=== PATIENT | female | born 1940 | race Caucasian/White ===

== ENCOUNTER → 2018-01-12 12:48 | Outpatient (CLI) | payer MEDICARE, OTHER, SELFPAY ==
--- NOTE | 2018-01-12 | DI.MG.S_ITS ---
BILATERAL DIGITAL DIAGNOSTIC MAMMOGRAM 3D/2D: 01/12/2018 CLINICAL: Breast mass. Comparison is made to exams dated: 12/22/2015 mammogram - [facility], 04/20/2012 mammogram, and 04/05/2011 mammogram - [facility]. The tissue of both breasts is heterogeneously dense. This may lower the sensitivity of mammography. No significant masses, calcifications, or other findings are seen in either breast. Please note, the patient could not recall the location of the previously palpable mass. IMPRESSION: NEGATIVE There is no mammographic evidence of malignancy. A 1 year screening mammogram is recommended. This exam was interpreted at Station ID: [id number]. NOTE: For mammograms, a report in lay terms will be sent to the patient. Approximately 15% of breast malignancies will not be visualized mammographically. In the management of a palpable breast mass, a negative mammogram must not discourage biopsy of a clinically suspicious lesion. Electronically Signed By: Cristiane Mejia M.D. lk/:01/12/2018 13:26:47 letter sent: Clinical Evaluation ACR BI-RADS Category 1: Negative [id number]
== END ==
PROVIDERS: Family Provider Family Medicine; PCP Family Medicine; Visit Provider Family Medicine
DX: R92.8 Other abnormal and inconclusive findings on diagnostic imaging of breast (principal)
CPT/HCPCS: 77066; G0279

== ENCOUNTER → 2019-08-30 11:55 | Outpatient (CLI) | payer MEDICARE, OTHER, SELFPAY ==
--- NOTE | 2019-08-30 | DI.CT.S_ITS ---
PROCEDURE: CT ABDOMEN PELVIS W CON INDICATIONS: Lower abd pain TECHNIQUE: After the administration of oral and intravenous contrast, 5 mm thick sections acquired from the diaphragms to the symphysis. 5 mm thick coronal and sagittal reformats were performed. For radiation dose reduction, the following was used: automated exposure control, adjustment of mA and/or kV according to patient size. COMPARISON: [facility], , CT ABDOMEN/PELVIS WITH CONTRAST, 01/15/2004, 10:23. FINDINGS: Image quality: Excellent. ABDOMEN: Lung bases: Lung bases are clear. Heart size is normal. Solid organs: Hepatic steatosis. Gallbladder negative. Biliary system is non-dilated. Pancreas enhances normally. Spleen is normal in size and enhancement. 1 cm left adrenal nodule, which is not seen on prior study from although no more recent comparison studies available Kidneys are normal in size and enhancement, without hydronephrosis. Peritoneum and bowel: Large amount of stool is present diffusely throughout the colon. No definite transition point to suggest bowel obstruction is identified. No free fluid or air. Normal appendix. Nodes and vessels: No retroperitoneal or mesenteric adenopathy. Aorta and inferior vena cava are normal in caliber. Miscellaneous: No ventral hernias. PELVIS: Genitourinary: Bladder is distended. Incidentally noted pessary Miscellaneous: No inguinal hernias or adenopathy. Bones: No suspicious bony lesions. Diffuse spondylosis and facet arthropathy. Posterior spinal fixation hardware from L3 to-L4. No vertebral body compression fractures. IMPRESSION: Large amount of stool seen throughout the colon, in particular the rectal vault and right colon suggestive of fecal retention/constipation. Nonspecific 1 cm left adrenal nodule which is technically indeterminate. Metastatic or malignant possibilities cannot be excluded. Recommend continued surveillance with CT to document long-term stability or a clinical discretion, adrenal protocol MRI could be performed. Hepatic steatosis Elsewhere, no acute abnormality identified. Dictated by: Javier Rutherford M.D. on 08/30/2019 at 16:28 Approved by: Javier Rutherford M.D. on 08/30/2019 at 16:38
[2019-08-30 13:05] LABS: Alanine Aminotransferase 46 IU/L (<35); Albumin 4.2 g/dL (3.5-5.0); Albumin Globulin Ratio 1.8 (1.0-2.8); Alkaline Phosphatase 98 U/L (38-126); Aspartate Aminotransferase 39 IU/L (14-36); Bilirubin Total 0.6 mg/dL (0.2-1.3); Bilirubin Unconjugated 0.6 mg/dL (0.0-1.1); Globulin 2.4 g/dL (1.7-4.1); HEMOLYSIS < 15 (0-50); Total Protein 6.6 g/dL (6.3-8.2)
== END ==
PROVIDERS: Family Provider Family Medicine; PCP Family Medicine; Referring Provider Family Medicine; Visit Provider Family Medicine
DX: R10.30 Lower abdominal pain, unspecified (principal); E27.9 Disorder of adrenal gland, unspecified; K76.0 Fatty (change of) liver, not elsewhere classified; R58 Hemorrhage, not elsewhere classified; R79.89 Other specified abnormal findings of blood chemistry
CPT/HCPCS: 36415; 74177; 80076

== ENCOUNTER → 2020-03-28 12:01 | Outpatient (CLI) | payer MEDICARE, OTHER, SELFPAY ==
[2020-03-28] MEDS: COVID-19 VACC #1, MRNA(MOD) 100 MCG/0.5 ML VIAL IM (12:11)
== END ==
PROVIDERS: Family Provider Family Medicine; PCP Family Medicine; Visit Provider Internal Medicine
DX: Z23 Encounter for immunization (principal)
CPT/HCPCS: 0011A; 91301

== ENCOUNTER → 2020-04-25 12:26 | Outpatient (CLI) | payer MEDICARE, OTHER, SELFPAY ==
[2020-04-25] MEDS: COVID-19 VACC #2, MRNA(MOD) 100 MCG/0.5 ML VIAL IM (12:34)
== END ==
PROVIDERS: Family Provider Family Medicine; PCP Family Medicine; Visit Provider Internal Medicine
DX: Z23 Encounter for immunization (principal)
CPT/HCPCS: 0012A; 91301

== ENCOUNTER → 2020-07-22 17:34 | Outpatient (CLI) | payer MEDICARE, OTHER, SELFPAY ==
--- NOTE | 2020-07-22 | DI.MRI.S_ITS ---
PROCEDURE: MR SHOULDER LT WO CON INDICATIONS: pain in left shoulder TECHNIQUE: Noncontrast oblique coronal T2 fast spin echo with fat saturation, oblique sagittal T1 spin echo and T2 fast spin echo with fat saturation, axial T1 spin echo and T2 fast spin echo with fat saturation through the shoulder. COMPARISON: [facility], CR, XR SHOULDER 2+ VIEWS LEFT, 05/28/2020, 15:51. FINDINGS: Image quality: Excellent. Rotator cuff: There is moderate diffuse T2 signal elevation throughout the subscapularis, supraspinatus, and infraspinatus tendons at the humeral insertion sites extending to the musculotendinous junction, indicating tendinopathy. Superimposed low-grade partial-thickness articular surface tearing of the lower subscapularis tendon at the humeral insertion site. Superimposed low-grade partial-thickness articular surface and intrasubstance tearing of the upper subscapularis tendon at the humeral insertion site extending to the musculotendinous junction. Superimposed low-grade partial-thickness intrasubstance tearing of the anterior, mid, and posterior supraspinatus, as well as the anterior and mid infraspinatus tendon at the humeral insertion site, with musculotendinous junction extension. Teres minor is intact. No rotator cuff atrophy is present. Bones and bursae: No bone marrow contusions or fractures. Moderate periarticular osteophyte formation at the glenohumeral joint. Moderate subchondral degenerative marrow edema within the glenoid and humeral head. Multiple subchondral cysts within the humeral head, consistent with degenerative sequelae. Moderate acromioclavicular joint degeneration. The acromion demonstrates conventional anatomy, without an os acromiale. No pathologic subacromial-subdeltoid or subcoracoid bursal fluid is present. Capsule and soft tissues: Diffuse degenerative glenoid labral tearing. Moderate glenohumeral joint effusion with multiple intra-articular loose bodies, largest of which is in the subcoracoid recess measuring roughly 14 mm diameter. The long head of the biceps tendon demonstrates normal location with moderate internal T2 signal elevation in enlargement, indicating tendinopathy. The rotator interval appears normal, without fibrosis. The coracohumeral ligament is normal in thickness. IMPRESSION: 1. Acromioclavicular and glenohumeral joint osteoarthritis. 2. Tendinopathy of the subscapularis, supraspinatus, and infraspinatus tendons, with superimposed partial thickness tears as described above. No full-thickness rotator cuff tear. 3. Diffuse degenerative glenoid labral tearing. 4. Acromioclavicular joint osteoarthritis. 5. Biceps tendinopathy. Dictated by: Nile Beltran M.D. on 07/23/2020 at 8:43 Approved by: Nile Beltran M.D. on 07/23/2020 at 8:50
== END ==
PROVIDERS: Family Provider Family Medicine; PCP Family Medicine; Referring Provider Family Medicine; Visit Provider Family Medicine
DX: M25.512 Pain in left shoulder (principal); M75.112 Incomplete rotator cuff tear or rupture of left shoulder, not specified as traumatic; M19.012 Primary osteoarthritis, left shoulder; S43.492A Other sprain of left shoulder joint, initial encounter; G89.29 Other chronic pain
CPT/HCPCS: 73221

== ENCOUNTER 2023-07-13 02:12 | Emergency (ER) | payer MEDICARE, OTHER, SELFPAY ==
--- NOTE | 2023-07-13 02:08 | ED.GENADULT ---
HPI - General Adult General Chief complaint: Fall Stated complaint: GLF Time Seen by Provider: 07/13/23 02:20 History of Present Illness HPI narrative: 83-year-old woman, currently living at [facility] reportedly had a witnessed fall with no obvious injuries. She has not on blood thinners. Family had expressed the wish that she be further evaluated with any events happening during her stay so she is brought in by medics for further evaluation. Per medics, the fall was witnessed on video. She ran into the wall and then slid down. She did not hit her head staff report that she is at her baseline. Patient has no complaints and does not remember the fall. Related Data Home Medications Medication Instructions Recorded Confirmed magnesium oxide 400 mg (241.3 mg 400 mg PO QDAY ##0 04/02/16 magnesium) tablet atorvastatin 40 mg tablet (Lipitor) 40 mg PO HS ##0 12/07/16 Previous Rx's Medication Instructions Recorded aspirin 325 mg tablet,delayed 325 mg PO QDAY #30 tabs 10/17/15 release hydroxyzine HCl 25 mg tablet 0 mg (0 x 25 mg) PO SEE 04/02/16 INSTRUCTIONS PRN #20 tabs alendronate 70 mg tablet (Fosamax) 70 mg PO QWEEK #12 tabs 04/06/16 liothyronine 5 mcg tablet (Cytomel) 5 mcg PO Q DAY ##90 06/18/16 duloxetine 60 mg capsule,delayed 60 mg PO QDAY #90 caps 07/20/16 release (Cymbalta) acyclovir 400 mg tablet 400 mg PO BID #60 tabs 07/23/16 buspirone 10 mg tablet 10 mg PO HS #90 tabs 09/08/16 levothyroxine 75 mcg tablet 0.075 mg PO QAM #90 tabs 09/08/16 (Synthroid) celecoxib 200 mg capsule (Celebrex) 200 cap PO BID #90 caps 09/15/16 buspirone 15 mg tablet 15 mg PO QDAY #90 tabs 10/19/16 acetaminophen 325 mg tablet 0 mg (0 x 325 mg) PO Q4HP PRN ##30 12/29/16 aspirin 81 mg tablet,delayed 81 mg PO BID ##60 12/29/16 release Allergies Allergy/AdvReac Type Severity Reaction Status Date / Time lactose AdvReac Mild FLATULENCE Unverified 06/08/17 13:07 meloxicam AdvReac Mild GASTRITIS Unverified 06/08/17 13:07 Sulfa (Sulfonamide AdvReac Mild HIGH FEVER Unverified 06/08/17 13:07 Antibiotics) Review of Systems Review of Systems ROS Unobtainable: Unobtainable due to mental status/LOC Patient History Medical History (Updated 07/13/23 @ 02:38 by Cher Grimes MD) Dementia Surgical History (Updated 06/28/17 @ 06:31 by Conversion Provider) History of knee replacement History of spinal fusion Status post laminectomy Status post knee surgery History of knee replacement Status post laminectomy Status post appendectomy Family History (Updated 08/20/15 @ 00:00 by Conversion Provider) Father Heart disease Grandmother Heart disease Hypertension Mother Mental health problem Grandfather Heart disease Hypertension High cholesterol Exam Initial Vital Signs Initial Vital Signs: Vital Signs Temperature 97.8 F 07/13/23 02:19 Pulse Rate 71 07/13/23 02:19 Respiratory Rate 18 07/13/23 02:19 Blood Pressure 154/73 H 07/13/23 02:19 Pulse Oximetry 96 07/13/23 02:19 Oxygen Delivery Method Room Air 07/13/23 02:19 General: Frail but healthy-appearing woman. No abrasions or contusions. She has not oriented to person, time, place, events HEENT: Moist mucous membranes, normal sclera with reactive pupils, no tenderness with manipulation of the skull Neck: No tenderness with palpation Respiratory: Lungs are clear to auscultation, no wheezing no rales no rhonchi. Full and symmetrical air movement. No chest tenderness with compression Cardiac: Regular rate and rhythm no murmurs no bruits Abdomen: Soft, nontender, no flank pain. No tenderness with pelvic ring manipulation Skin: Warm and dry, no rashes Neurologic: Grossly neurologically intact with no obvious asymmetries or abnormalities Extremities: No trauma, well perfused, no tenderness with range of motion at the shoulders, elbows, wrists, hips or knees. Psych: Patient is not oriented to person time and place, vacillates between pleasantly demented too aggressive and yelling. Course Vital Signs Vital signs: Vital Signs - 8 hr 07/13/23 02:19 Temperature 97.8 F Pulse Rate 71 Respiratory Rate 18 Blood Pressure 154/73 H Pulse Oximetry 96 Oxygen Delivery Method Room Air Medical Decision Making MDM Narrative Medical decision making narrative: 83-year-old woman with significant dementia [facility]. She had a fall that was witnessed via video today that consisted of running into the wall slumping down no significant injury. Based on standing request reportedly from the that every event that occurs be ?checked out? medics were called and she was transported to the emergency department. There was no obvious injury, abrasions, contusions no indication for additional imaging or blood work. Reassurance is given and patient is helped back to [facility] Discharge Plan Departure Patient Disposition: Home Clinical Impression: Fall Qualifiers: Encounter type: initial encounter Qualified Code(s): W19.XXXA - Unspecified fall, initial encounter Activity Restrictions/Additional Instructions: Kadie was seen and evaluated in the emergency department She seems that she is at her baseline level of cognitive impairment There are no keep pain complaints or evidence of injury with examination of her head, neck, thorax, abdomen, pelvis or extremities There was no indication for additional blood work or imaging today If you have additional concerns please feel free to have Kadie return for further evaluation Prescriptions: No Action aspirin 325 MG tablet,delayed release (DR/EC) 325 mg PO QDAY Qty: 30 1RF magnesium oxide 400 MG tablet 400 mg PO QDAY Qty: 0 hydroxyzine HCl 25 MG tablet 0 mg PO SEE INSTRUCTIONS PRNQty: 20 0RF alendronate [Fosamax] 70 MG tablet 70 mg PO QWEEK Qty: 12 3RF liothyronine [Cytomel] 5 MCG tablet 5 mcg PO Q DAY Qty: 90 1RF duloxetine [Cymbalta] 60 MG capsule,delayed release(DR/EC) 60 mg PO QDAY Qty: 90 1RF acyclovir 400 MG tablet 400 mg PO BID Qty: 60 3RF levothyroxine [Synthroid] 75 MCG tablet 0.075 mg PO QAM Qty: 90 0RF buspirone 10 MG tablet 10 mg PO HS Qty: 90 1RF celecoxib [Celebrex] 200 MG capsule 200 cap PO BID Qty: 90 1RF buspirone 15 MG tablet 15 mg PO QDAY Qty: 90 1RF atorvastatin [Lipitor] 40 MG tablet 40 mg PO HS Qty: 0 acetaminophen 325 MG tablet 0 mg PO Q4HP PRNQty: 30 0RF aspirin 81 MG tablet,delayed release (DR/EC) 81 mg PO BID Qty: 60 0RF Referrals: Gerardo Dyer MD [Primary Care Provider] - Stand Alone Forms: Patient Portal/API
[2023-07-13 02:15] VITALS: BP 154/73; PULSE 77; O2SAT 97
[2023-07-13 02:19] VITALS: BP 154/73; PULSE 71; RESP 18; TEMP 36.6; O2SAT 96
[2023-07-13 02:30] VITALS: BP 150/75; PULSE 70; RESP 18; O2SAT 100
--- NOTE | 2023-07-13 03:30 | PC.NURSE ---
pt continues to get off of stretcher, ambulated pt around the nurses' station and placed pt in a wc to sit at the nurses station, pt given some jello
--- NOTE | 2023-07-13 04:08 | PC.NURSE ---
repeat vs refused per pt
== END 2023-07-13 04:08 | disposition home or self-care (01) ==
PROVIDERS: Emergency Provider Emergency Medicine; Family Provider Family Medicine; PCP Family Medicine
DX: Z71.1 Person with feared health complaint in whom no diagnosis is made (principal); W18.30XA Fall on same level, unspecified, initial encounter

== ENCOUNTER 2023-07-13 16:54 | Emergency (ER) | payer MEDICARE, OTHER, SELFPAY ==
[2023-07-13] VITALS (12 sets, daily range): BP systolic 136–165; BP diastolic 57–77; PULSE 57–67; RESP 12–18; TEMP 36.7; O2SAT 97–100; BMI 21.5
--- NOTE | 2023-07-13 17:28 | DI.CT.S_ITS ---
PROCEDURE: CT HEAD/BRAIN WO CON INDICATIONS: Altered mental status after fall TECHNIQUE: Noncontrast 4.5 mm thick angled axial sections acquired from the foramen magnum to the vertex, with coronal and sagittal reformats. For radiation dose reduction, the following was used: automated exposure control, adjustment of mA and/or kV according to patient size. COMPARISON: [facility], CT, HEAD WITHOUT CONTRAST, 10/01/2015, 16:30. FINDINGS: Image quality: Diagnostic CSF spaces: Basal cisterns are patent. Lateral ventricles are symmetric. Volume: Vascular calcifications. 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 Volume loss is present. These findings are moderate to severe Brain: No acute hemorrhage. No gross loss of lockwood-white differentiation. Ventriculomegaly, out of proportion to the degree of volume loss. Craniofacial structures: No displaced fracture. Sinuses are clear. Orbits are intact. IMPRESSION: No acute intracranial pathology. Moderate to severe senescent changes and volume loss. Ventriculomegaly is increased, out of proportion to the degree of volume loss Dictated by: Michele Petit M.D. on 07/13/2023 at 18:12 Approved by: Michele Petit M.D. on 07/13/2023 at 18:14
[2023-07-13 17:39] LABS: Add Manual Diff / Slide Review NO; Basophils Absolute Auto 100 /uL (0-100); Basophils Percent Auto 0.8 % (0-2); Eosinophils Absolute Auto 200 /uL (0-450); Eosinophils Percent Auto 2.1 % (2-4); Hematocrit 41.4 % (36-46); Hemoglobin 13.7 g/dL (12.0-16.0); Lymphocytes Absolute Auto 2400 /uL (1100-4500); Lymphocytes Percent Auto 27.4 % (25-40); Mean Corpuscular HGB Conc 33.1 % (30-36); Mean Corpuscular Hemoglobin 32.1 PG (26-34); Monocytes Absolute Auto 700 /uL (0-900); Monocytes Percent Auto 8.1 % (3-14); Neutrophils Absolute Auto 5500 /uL (1500-7000); Neutrophils Percent Auto 61.6 % (50-75); Platelet Count 276 X10^3/uL (150-400); Red Blood Cell Count 4.27 X10^6/uL (4.0-5.2); Red Cell Distribution Width 13.4 % (11.6-14.8); White Blood Cell Count 8.9 X10^3/uL (4.5-11.0)
[2023-07-13 17:39] LABS: Appearance Urine UA CLEAR; Bilirubin Urine UA NEGATIVE (NEGATIVE); Color Urine UA YELLOW; Glucose Urine UA NEGATIVE (Negative); Ketones Urine UA NEGATIVE (NEGATIVE); Leukocyte Esterase Urine UA NEGATIVE (NEGATIVE); Nitrite Urine UA NEGATIVE (Negative); Occult Blood Urine UA NEGATIVE (Negative); Protein Urine UA NEGATIVE (Negative); Urobilinogen Urine UA 0.2 E.U./dL (0.2)
[2023-07-13 17:42] LABS: BUN Creatinine Ratio 25.9 (6-22); Blood Urea Nitrogen 22 mg/dL (7-17); Calcium 9.4 mg/dL (8.4-10.2); Carbon Dioxide 23 mmol/L (22-32); Chloride 113 mmol/L (98-107); Estimated Glomerular Filt Rate > 60 mL/min (>60); Glucose 87 mg/dL (80-110); HEMOLYSIS 21 (0-50); Potassium 4.5 mmol/L (3.4-5.1); Sodium 141 mmol/L (137-145)
[2023-07-13 17:55] LABS: Bacteria Urine None Seen; Culture Indicated Urine Cult Not Indicated; RBC Urine None Seen (0-5/HPF); Squamous Epithelial Cell Urine None Seen (0-5/HPF); Urine Volume 10mL (spun); WBC Urine None Seen (0-5/HPF)
--- NOTE | 2023-07-13 18:20 | ED.GENADULT ---
HPI - General Adult General Chief complaint: Altered Mental Status Stated complaint: decreased LOC,here last night. Time Seen by Provider: 07/13/23 17:08 Source: EMS Mode of arrival: EMS History of Present Illness HPI narrative: 83-year-old woman with dementia, currently at [facility] had a witnessed fall with no injury last night was sent to the emergency department and was evaluated. She was not complaining of any pain, vital signs were stable. There was no indication for additional workup at that time. She was here for the majority of the night and was wide awake and quite literally, walking circles through the emergency department for much of the evening. She went back to [facility] and returns this morning with staff reporting decreased level of consciousness, responding to voice. Patient is sleeping soundly at this time. Related Data Home Medications Medication Instructions Recorded Confirmed magnesium oxide 400 mg (241.3 mg 400 mg PO QDAY ##0 04/02/16 magnesium) tablet atorvastatin 40 mg tablet (Lipitor) 40 mg PO HS ##0 12/07/16 Previous Rx's Medication Instructions Recorded aspirin 325 mg tablet,delayed 325 mg PO QDAY #30 tabs 10/17/15 release hydroxyzine HCl 25 mg tablet 0 mg (0 x 25 mg) PO SEE 04/02/16 INSTRUCTIONS PRN #20 tabs alendronate 70 mg tablet (Fosamax) 70 mg PO QWEEK #12 tabs 04/06/16 liothyronine 5 mcg tablet (Cytomel) 5 mcg PO Q DAY ##90 06/18/16 duloxetine 60 mg capsule,delayed 60 mg PO QDAY #90 caps 07/20/16 release (Cymbalta) acyclovir 400 mg tablet 400 mg PO BID #60 tabs 07/23/16 buspirone 10 mg tablet 10 mg PO HS #90 tabs 09/08/16 levothyroxine 75 mcg tablet 0.075 mg PO QAM #90 tabs 09/08/16 (Synthroid) celecoxib 200 mg capsule (Celebrex) 200 cap PO BID #90 caps 09/15/16 buspirone 15 mg tablet 15 mg PO QDAY #90 tabs 10/19/16 acetaminophen 325 mg tablet 0 mg (0 x 325 mg) PO Q4HP PRN ##30 12/29/16 aspirin 81 mg tablet,delayed 81 mg PO BID ##60 12/29/16 release Allergies Allergy/AdvReac Type Severity Reaction Status Date / Time lactose AdvReac Mild FLATULENCE Unverified 06/08/17 13:07 meloxicam AdvReac Mild GASTRITIS Unverified 06/08/17 13:07 Sulfa (Sulfonamide AdvReac Mild HIGH FEVER Unverified 06/08/17 13:07 Antibiotics) Review of Systems Review of Systems ROS Unobtainable: Unobtainable due to mental status/LOC Patient History Medical History Dementia Surgical History History of knee replacement History of spinal fusion Status post laminectomy Status post knee surgery History of knee replacement Status post laminectomy Status post appendectomy Family History Father Heart disease Grandmother Heart disease Hypertension Mother Mental health problem Grandfather Heart disease Hypertension High cholesterol Exam Initial Vital Signs Initial Vital Signs: Vital Signs Pulse Rate 63 07/13/23 17:11 Respiratory Rate 12 07/13/23 17:11 Blood Pressure 164/77 H 07/13/23 17:11 Pulse Oximetry 97 07/13/23 17:11 General: Frail appearing but in no acute distress. She arouses slightly but continues to sleep through much of the exam HEENT: Moist mucous membranes, normal sclera with reactive pupils, no hematomas or contusions Neck: No pain behaviors with palpation along her cervical spine Respiratory: Lungs are clear to auscultation with symmetrical breath movements no respiratory distress Cardiac: Regular rate and rhythm no murmurs no bruits Abdomen: Soft, no pain behaviors with palpation Skin: Warm and dry, no rashes, no lower extremity venous stasis changes or significant contusions Neurologic: Patient is sleeping soundly Extremities: No trauma, well perfused Course Orders Ordered: ED Orders 07/13/23 16:50 Basic Metabolic Panel Stat Complete Blood Count AUTO DIFF Stat 07/13/23 17:11 Urinalysis and Microscopic Stat 07/13/23 17:28 CT head/brain wo con Stat Vital Signs Vital signs: Vital Signs - 8 hr 07/13/23 17:11 07/13/23 17:11 07/13/23 17:15 Temperature Pulse Rate 63 62 Respiratory Rate 12 12 Blood Pressure 164/77 H Pulse Oximetry 97 97 Oxygen Delivery Method 07/13/23 17:15 07/13/23 17:17 07/13/23 17:30 Temperature 98.0 F Pulse Rate 62 61 Respiratory Rate 16 14 Blood Pressure 163/74 H 163/74 H Pulse Oximetry 99 98 Oxygen Delivery Method Room Air 07/13/23 17:30 07/13/23 17:42 07/13/23 17:42 Temperature Pulse Rate 61 Respiratory Rate 13 Blood Pressure 165/68 H 145/57 H Pulse Oximetry 99 Oxygen Delivery Method 07/13/23 17:45 07/13/23 17:45 Temperature Pulse Rate 60 Respiratory Rate 16 Blood Pressure 154/70 H Pulse Oximetry 98 Oxygen Delivery Method Room Air Medical Decision Making Lab Data 07/13/23 16:50 07/13/23 16:50 Labs: Lab Results 07/13/23 07/13/23 Range/Units 16:50 17:11 WBC 8.9 (4.5-11.0) X10^3/uL RBC 4.27 (4.0-5.2) X10^6/uL Hgb 13.7 (12.0-16.0) g/dL Hct 41.4 (36-46) % MCV 97.0 (80-100) fL MCH 32.1 (26-34) PG MCHC 33.1 (30-36) % RDW 13.4 (11.6-14.8) % Plt Count 276 (150-400) X10^3/uL Neut % (Auto) 61.6 (50-75) % Lymph % (Auto) 27.4 (25-40) % [place] % (Auto) 8.1 (3-14) % Eos % (Auto) 2.1 (2-4) % Baso % (Auto) 0.8 (0-2) % Neut # (Auto) 5500 (1063-6002) /uL Lymph # (Auto) 2400 (5475-2448) /uL [place] # (Auto) 700 (0-900) /uL Eos # (Auto) 200 (0-450) /uL Baso # (Auto) 100 (0-100) /uL Sodium 141 (137-145) mmol/L Potassium 4.5 (3.4-5.1) mmol/L Chloride 113 H (98-107) mmol/L Carbon Dioxide 23 (22-32) mmol/L BUN 22 H (7-17) mg/dL Creatinine 0.85 (0.52-1.04) mg/dL Estimated GFR > 60 (>60) mL/min BUN/Creatinine Ratio 25.9 H (6-22) Glucose 87 (80-110) mg/dL Calcium 9.4 (8.4-10.2) mg/dL Urine Color Yellow Urine Appearance Clear Urine pH 7.0 (4.5-8.0) Ur Specific [place] 1.010 (1.000-1.035) Urine Protein Negative (Negative) Urine Glucose (UA) Negative (Negative) g/dL Urine Ketones Negative (NEGATIVE) Urine Occult Blood Negative (Negative) Urine Nitrate Negative (Negative) Urine Bilirubin Negative (NEGATIVE) Urine Urobilinogen 0.2 (0.2) E.U./dL Ur Leukocyte Esterase Negative (NEGATIVE) Urine RBC None seen (0-5/HPF) Urine WBC None seen (0-5/HPF) Ur Squamous Epith Cells None seen (0-5/HPF) Urine Bacteria None seen (None) Ur Culture Indicated? Cult not indicated Vol Urine Centrifuged 10ml (spun) MDM Narrative Medical decision making narrative: CC: Decreased level of consciousness today Complicating co-morbidities: Was in the emergency department all night last night with no signs of injury, trauma and was actively walking through the Department and quite verbal all night long Data collected from: [facility] Social determinants of health that may influence the patients condition: Advanced dementia Differential considered: Infection, intracranial bleed, given that she is moving all extremities I doubt stroke, simple sleep as she was awake and very active all night Exam documented above, pertinent findings include: She is sleeping soundly, there was no signs of infection, trauma no pain behaviors with deep palpation along the abdomen thoracic spine. Lab Test results independently reviewed as above. Pertinent findings: CBC is completely unremarkable with no suggestion of leukocytosis or anemia Chemistries are reassuring with normal renal function, normal electrolytes Urinalysis does not show evidence of a bladder infection Imaging studies independently reviewed: CT scan of the head shows no acute abnormalities with chronic periventricular white matter disease and volume loss Discussion: 83-year-old woman with progressive dementia in the care facility. Slumped against the wall fell to the floor last night no obvious trauma was up all night quite active in the emergency department. Staff was very concerned that she was sleepy today. She is difficult to arouse but is moving all extremities. Workup does not suggest significant infection, bleeding, kidney abnormalities or electrolyte disorder. CT scan of the head shows no acute findings. At this point I am not finding an alternate explanation for her fatigue today beyond the fact that she was awake all night long. I do not believe that additional workup or hospitalization is required nor appropriate at this time. We will arrange for returned back to [facility] memory facility Discharge Plan Departure Patient Disposition: Home Clinical Impression: Somnolence Dementia Qualifiers: Dementia type: unspecified type Instructions: DI for Altered Mental Status Activity Restrictions/Additional Instructions: Kadie was re-evaluated today. Her blood work was quite reassuring, there was no suggestion of infection either bacterial or viral. No evidence of trauma, bruising, cellulitis. Head CT does not suggest acute abnormalities Patient did remain quite sleepy throughout her stay during the day today which is a direct contrast to how significantly active she was all night long. I suspect that she is significantly sleep deprived after being up and in a new environment, walking around the department and being significantly interactive all night. At this point there is no indication for additional workup or hospitalization. I believe is safe for her to return to her dementia care facility. If she is awake again all evening, she may benefit from 1 mg of melatonin at bedtime for the next week to try and records donate circadian rhythms with regular daylight hours. If you find that you are getting worse or develop any new symptoms, please feel free to return to the emergency department for further evaluation. Prescriptions: No Action aspirin 325 MG tablet,delayed release (DR/EC) 325 mg PO QDAY Qty: 30 1RF magnesium oxide 400 MG tablet 400 mg PO QDAY Qty: 0 hydroxyzine HCl 25 MG tablet 0 mg PO SEE INSTRUCTIONS PRNQty: 20 0RF alendronate [Fosamax] 70 MG tablet 70 mg PO QWEEK Qty: 12 3RF liothyronine [Cytomel] 5 MCG tablet 5 mcg PO Q DAY Qty: 90 1RF duloxetine [Cymbalta] 60 MG capsule,delayed release(DR/EC) 60 mg PO QDAY Qty: 90 1RF acyclovir 400 MG tablet 400 mg PO BID Qty: 60 3RF levothyroxine [Synthroid] 75 MCG tablet 0.075 mg PO QAM Qty: 90 0RF buspirone 10 MG tablet 10 mg PO HS Qty: 90 1RF celecoxib [Celebrex] 200 MG capsule 200 cap PO BID Qty: 90 1RF buspirone 15 MG tablet 15 mg PO QDAY Qty: 90 1RF atorvastatin [Lipitor] 40 MG tablet 40 mg PO HS Qty: 0 acetaminophen 325 MG tablet 0 mg PO Q4HP PRNQty: 30 0RF aspirin 81 MG tablet,delayed release (DR/EC) 81 mg PO BID Qty: 60 0RF Referrals: Gerardo Dyer MD [Primary Care Provider] - Stand Alone Forms: Patient Portal/API
--- NOTE | 2023-07-13 18:53 | PC.NURSE ---
Left a voicemail for pt's , Zohaib, stating date and time of my call. I requested a return call to [phone] for an update. [facility] was notified that an attempt was made to contact Zohaib. Nurse to nurse report was given to Alysa @ [phone]. Pt to return to [facility] via BLS.
--- NOTE | 2023-07-13 19:57 | PC.NURSE ---
Pt sleeping on discharge, arousable to voice. Cooperative with cares.
== END 2023-07-13 19:59 | disposition home or self-care (01) ==
PROVIDERS: Emergency Medicine; Emergency Provider Emergency Medicine; Family Provider Family Medicine; PCP Family Medicine
DX: F03.90 Unspecified dementia, unspecified severity, without behavioral disturbance, psychotic disturbance, mood disturbance, and anxiety (principal); R40.0 Somnolence
CPT/HCPCS: 70450; 80048; 81001; 85025; 99281; 99283

== ENCOUNTER → 2023-07-25 13:36 | Outpatient (ROUT) | payer MEDICARE, OTHER, SELFPAY ==
[2023-07-25 13:50] LABS: Appearance Urine UA CLOUDY; Bilirubin Urine UA NEGATIVE (NEGATIVE); Color Urine UA YELLOW; Glucose Urine UA NEGATIVE (Negative); Ketones Urine UA NEGATIVE (NEGATIVE); Leukocyte Esterase Urine UA 3+ (NEGATIVE); Nitrite Urine UA POSITIVE (Negative); Occult Blood Urine UA 1+ (Negative); Protein Urine UA 1+ (Negative); Specific Gravity Urine UA 1.025 (1.000-1.035); Urobilinogen Urine UA 0.2 E.U./dL (0.2)
[2023-07-25 14:03] LABS: Bacteria Urine Many (>30); Culture Indicated Urine Specimen Cultured; RBC Urine 0-1/HPF (0-5/HPF); Squamous Epithelial Cell Urine 0-1 /HPF (0-5/HPF); Urine Volume 10mL (spun); WBC Urine 30-100/HPF (0-5/HPF)
== END ==
PROVIDERS: Family Provider Family Medicine; PCP Family Medicine; Visit Provider Nurse Practitioner Family
DX: N39.0 Urinary tract infection, site not specified (principal)
CPT/HCPCS: 81001; 87077; 87086; 87186

== ENCOUNTER → 2023-07-27 14:28 | Outpatient (CLI) | payer MEDICARE, OTHER, SELFPAY ==
[2023-07-27 15:17] LABS: Add Manual Diff / Slide Review NO; Basophils Absolute Auto 100 /uL (0-100); Basophils Percent Auto 0.5 % (0-2); Eosinophils Absolute Auto 200 /uL (0-450); Eosinophils Percent Auto 1.8 % (2-4); Hematocrit 38.7 % (36-46); Hemoglobin 12.9 g/dL (12.0-16.0); Lymphocytes Absolute Auto 1700 /uL (1100-4500); Lymphocytes Percent Auto 15.8 % (25-40); Mean Corpuscular HGB Conc 33.4 % (30-36); Mean Corpuscular Hemoglobin 32.4 PG (26-34); Mean Corpuscular Volume 97.1 fL (80-100); Monocytes Absolute Auto 600 /uL (0-900); Monocytes Percent Auto 5.3 % (3-14); Neutrophils Absolute Auto 8100 /uL (1500-7000); Neutrophils Percent Auto 76.6 % (50-75); Platelet Count 256 X10^3/uL (150-400); Red Blood Cell Count 3.98 X10^6/uL (4.0-5.2); Red Cell Distribution Width 13.6 % (11.6-14.8); White Blood Cell Count 10.6 X10^3/uL (4.5-11.0)
[2023-07-27 15:29] LABS: Ammonia (NH3) < 9 umol/L (9-30)
[2023-07-27 16:06] LABS: Alanine Aminotransferase 101 IU/L (<35); Albumin 3.8 g/dL (3.5-5.0); Albumin Globulin Ratio 1.7 (1.0-2.8); Alkaline Phosphatase 85 U/L (38-126); Aspartate Aminotransferase 77 IU/L (14-36); BUN Creatinine Ratio 23.6 (6-22); Bilirubin Total 0.6 mg/dL (0.2-1.3); Blood Urea Nitrogen 26 mg/dL (7-17); Carbon Dioxide 26 mmol/L (22-32); Chloride 111 mmol/L (98-107); Estimated Glomerular Filt Rate 49 mL/min (>60); Globulin 2.3 g/dL (1.7-4.1); Glucose 138 mg/dL (80-110); HEMOLYSIS < 15 (0-50); Lithium < 0.2 mmol/L (0.6-1.2); Potassium 4.1 mmol/L (3.4-5.1); Sodium 142 mmol/L (137-145); Total Protein 6.1 g/dL (6.3-8.2)
[2023-07-27 16:37] LABS: Thyroid Stimulating Hormone 4.72 uIU/mL (0.47-4.68)
[2023-07-27 17:10] LABS: Folate 13.9 ng/mL (2.76-20.0); Vitamin B12 604 pg/mL (239-931)
== END ==
PROVIDERS: Family Provider Family Medicine; PCP Family Medicine; Referring Provider Nurse Practitioner Family; Visit Provider Nurse Practitioner Family
DX: R41.0 Disorientation, unspecified (principal); R10.9 Unspecified abdominal pain
CPT/HCPCS: 36415; 80053; 80178; 82140; 82607; 82746; 84443; 85025

== ENCOUNTER → 2023-10-23 12:29 | Outpatient (ROUT) | payer MEDICARE, OTHER, SELFPAY ==
[2023-10-23 12:43] LABS: Appearance Urine UA CLOUDY; Bilirubin Urine UA NEGATIVE (NEGATIVE); Color Urine UA YELLOW; Glucose Urine UA NEGATIVE (Negative); Ketones Urine UA NEGATIVE (NEGATIVE); Leukocyte Esterase Urine UA 2+ (NEGATIVE); Nitrite Urine UA POSITIVE (Negative); Occult Blood Urine UA 1+ (Negative); Protein Urine UA 2+ (Negative); Specific Gravity Urine UA 1.025 (1.000-1.035); Urobilinogen Urine UA 0.2 E.U./dL (0.2)
[2023-10-23 12:56] LABS: Bacteria Urine Many (>30); RBC Urine 0-1/HPF (0-5/HPF); Squamous Epithelial Cell Urine None Seen (0-5/HPF); Urine Volume 10mL (spun); WBC Urine >100/HPF (0-5/HPF)
[2023-10-23 12:57] LABS: Culture Indicated Urine Specimen Cultured
== END ==
PROVIDERS: Family Provider Family Medicine; PCP Family Medicine; Visit Provider Nurse Practitioner Gerontology
DX: N30.90 Cystitis, unspecified without hematuria (principal)
CPT/HCPCS: 81001; 87077; 87086; 87186

== ENCOUNTER → 2023-12-07 14:08 | Outpatient (CLI) | payer MEDICARE, OTHER, SELFPAY ==
[2023-12-07 15:38] LABS: Add Manual Diff / Slide Review NO; Basophils Absolute Auto 0 /uL (0-100); Basophils Percent Auto 0.4 % (0-2); Eosinophils Absolute Auto 200 /uL (0-450); Eosinophils Percent Auto 1.8 % (2-4); Hematocrit 40.1 % (36-46); Hemoglobin 13.6 g/dL (12.0-16.0); Lymphocytes Absolute Auto 2600 /uL (1100-4500); Lymphocytes Percent Auto 27.7 % (25-40); Mean Corpuscular HGB Conc 33.9 % (30-36); Mean Corpuscular Hemoglobin 32.8 PG (26-34); Mean Corpuscular Volume 96.7 fL (80-100); Monocytes Absolute Auto 800 /uL (0-900); Monocytes Percent Auto 8.3 % (3-14); Neutrophils Absolute Auto 5700 /uL (1500-7000); Neutrophils Percent Auto 61.8 % (50-75); Platelet Count 258 X10^3/uL (150-400); Red Blood Cell Count 4.14 X10^6/uL (4.0-5.2); Red Cell Distribution Width 14.3 % (11.6-14.8); White Blood Cell Count 9.3 X10^3/uL (4.5-11.0)
[2023-12-07 16:37] LABS: Alanine Aminotransferase 17 IU/L (<35); Albumin 4.4 g/dL (3.5-5.0); Albumin Globulin Ratio 1.6 (1.0-2.8); Alkaline Phosphatase 70 U/L (38-126); Aspartate Aminotransferase 27 IU/L (14-36); BUN Creatinine Ratio 23.3 (6-22); Bilirubin Total 0.6 mg/dL (0.2-1.3); Blood Urea Nitrogen 27 mg/dL (7-17); Calcium 9.9 mg/dL (8.4-10.2); Carbon Dioxide 26 mmol/L (22-32); Chloride 108 mmol/L (98-107); Estimated Glomerular Filt Rate 46 mL/min (>60); Globulin 2.7 g/dL (1.7-4.1); Glucose 83 mg/dL (80-110); HEMOLYSIS < 15 (0-50); Potassium 4.2 mmol/L (3.4-5.1); Sodium 143 mmol/L (137-145); Total Protein 7.1 g/dL (6.3-8.2)
[2023-12-07 17:10] LABS: Thyroid Stimulating Hormone 1.21 uIU/mL (0.47-4.68)
== END ==
PROVIDERS: Family Provider Family Medicine; PCP Family Medicine; Referring Provider Nurse Practitioner Family; Visit Provider Nurse Practitioner Family
DX: E03.9 Hypothyroidism, unspecified (principal); R53.83 Other fatigue
CPT/HCPCS: 36415; 80053; 84443; 85025

== ENCOUNTER → 2023-12-09 11:42 | Outpatient (ROUT) | payer MEDICARE, OTHER, SELFPAY ==
[2023-12-09 11:59] LABS: Bilirubin Urine UA NEGATIVE (NEGATIVE); Color Urine UA YELLOW; Glucose Urine UA NEGATIVE (Negative); Ketones Urine UA NEGATIVE (NEGATIVE); Leukocyte Esterase Urine UA TRACE (NEGATIVE); Nitrite Urine UA POSITIVE (Negative); Occult Blood Urine UA TRACE-INTACT (Negative); Protein Urine UA TRACE (Negative); Specific Gravity Urine UA 1.025 (1.000-1.035); Urobilinogen Urine UA 0.2 E.U./dL (0.2)
[2023-12-09 12:02] LABS: Appearance Urine UA Slightly Cloudy
[2023-12-09 13:20] LABS: Bacteria Urine Many (>30); RBC Urine 1-5/HPF (0-5/HPF); Squamous Epithelial Cell Urine 0-1 /HPF (0-5/HPF); Urine Volume 10mL (spun); WBC Urine 10-30/HPF (0-5/HPF)
[2023-12-09 13:21] LABS: Culture Indicated Urine Specimen Cultured
== END ==
PROVIDERS: Family Provider Family Medicine; PCP Family Medicine; Visit Provider Nurse Practitioner Family
DX: N39.0 Urinary tract infection, site not specified (principal); R31.9 Hematuria, unspecified
CPT/HCPCS: 81001; 87086

== ENCOUNTER → 2024-01-06 13:57 | Outpatient (ROUT) | payer MEDICARE, OTHER, SELFPAY ==
[2024-01-06 14:13] LABS: Bilirubin Urine UA NEGATIVE (NEGATIVE); Color Urine UA YELLOW; Glucose Urine UA NEGATIVE (Negative); Ketones Urine UA NEGATIVE (NEGATIVE); Leukocyte Esterase Urine UA 3+ (NEGATIVE); Nitrite Urine UA POSITIVE (Negative); Occult Blood Urine UA 1+ (Negative); Protein Urine UA TRACE (Negative); Specific Gravity Urine UA 1.015 (1.000-1.035); Urobilinogen Urine UA 0.2 E.U./dL (0.2)
[2024-01-06 14:16] LABS: Appearance Urine UA CLOUDY
[2024-01-06 14:24] LABS: RBC Urine 0-1/HPF (0-5/HPF); Urine Volume 10mL (spun)
[2024-01-06 14:25] LABS: Bacteria Urine Many (>30); Culture Indicated Urine Specimen Cultured; Squamous Epithelial Cell Urine 0-1 /HPF (0-5/HPF); WBC Urine >100/HPF (0-5/HPF)
== END ==
PROVIDERS: Family Provider Family Medicine; PCP Family Medicine; Visit Provider Nurse Practitioner Gerontology
DX: N39.0 Urinary tract infection, site not specified (principal)
CPT/HCPCS: 81001; 87077; 87086; 87147; 87186

== ENCOUNTER → 2024-01-19 13:55 | Outpatient (ROUT) | payer MEDICARE, OTHER, SELFPAY ==
[2024-01-19 14:12] LABS: Appearance Urine UA CLOUDY; Bilirubin Urine UA NEGATIVE (NEGATIVE); Color Urine UA YELLOW; Glucose Urine UA NEGATIVE (Negative); Ketones Urine UA NEGATIVE (NEGATIVE); Leukocyte Esterase Urine UA 3+ (NEGATIVE); Nitrite Urine UA POSITIVE (Negative); Occult Blood Urine UA 1+ (Negative); Protein Urine UA 1+ (Negative); Urobilinogen Urine UA 0.2 E.U./dL (0.2)
[2024-01-19 14:23] LABS: Bacteria Urine Many (>30); RBC Urine 1-5/HPF (0-5/HPF); Squamous Epithelial Cell Urine 1-5 /HPF (0-5/HPF); Urine Volume 10mL (spun); WBC Urine >100/HPF (0-5/HPF)
[2024-01-19 14:24] LABS: Culture Indicated Urine Specimen Cultured
== END ==
PROVIDERS: Family Provider Family Medicine; PCP Family Medicine; Visit Provider Nurse Practitioner Family
DX: R53.83 Other fatigue (principal); R82.90 Unspecified abnormal findings in urine
CPT/HCPCS: 81001; 87077; 87086; 87186

== ENCOUNTER → 2024-03-14 13:39 | Outpatient (ROUT) | payer MEDICARE, OTHER, SELFPAY ==
[2024-03-14 13:46] LABS: Appearance Urine UA CLOUDY; Bilirubin Urine UA NEGATIVE (NEGATIVE); Color Urine UA YELLOW; Glucose Urine UA NEGATIVE (Negative); Ketones Urine UA TRACE (NEGATIVE); Leukocyte Esterase Urine UA 2+ (NEGATIVE); Nitrite Urine UA POSITIVE (Negative); Occult Blood Urine UA 2+ (Negative); Protein Urine UA 2+ (Negative); Specific Gravity Urine UA 1.025 (1.000-1.035); Urobilinogen Urine UA 0.2 E.U./dL (0.2)
[2024-03-14 13:49] LABS: Urine Volume 10mL (spun)
[2024-03-14 13:52] LABS: Bacteria Urine Many (>30); Culture Indicated Urine Specimen Cultured; RBC Urine 30-100/HPF (0-5/HPF); Squamous Epithelial Cell Urine None Seen (0-5/HPF); WBC Urine >100/HPF (0-5/HPF)
== END ==
PROVIDERS: Family Provider Family Medicine; PCP Family Medicine; Visit Provider Nurse Practitioner Family
DX: R82.90 Unspecified abnormal findings in urine (principal)
CPT/HCPCS: 81001; 87077; 87086; 87147

== ENCOUNTER → 2024-04-04 12:33 | Outpatient (ROUT) | payer MEDICARE, OTHER, SELFPAY ==
[2024-04-04 12:41] LABS: Appearance Urine UA CLOUDY; Bilirubin Urine UA NEGATIVE (NEGATIVE); Color Urine UA YELLOW; Glucose Urine UA NEGATIVE (Negative); Ketones Urine UA NEGATIVE (NEGATIVE); Leukocyte Esterase Urine UA 2+ (NEGATIVE); Nitrite Urine UA POSITIVE (Negative); Occult Blood Urine UA 2+ (Negative); Protein Urine UA 2+ (Negative); Specific Gravity Urine UA 1.025 (1.000-1.035); Urobilinogen Urine UA 0.2 E.U./dL (0.2)
[2024-04-04 12:45] LABS: Urine Volume 10mL (spun)
[2024-04-04 12:47] LABS: Bacteria Urine Many (>30); Culture Indicated Urine Specimen Cultured; RBC Urine 30-100/HPF (0-5/HPF); Squamous Epithelial Cell Urine None Seen (0-5/HPF); WBC Urine >100/HPF (0-5/HPF)
== END ==
PROVIDERS: Family Provider Family Medicine; PCP Family Medicine; Visit Provider Nurse Practitioner Family
DX: R82.90 Unspecified abnormal findings in urine (principal)
CPT/HCPCS: 81001; 87077; 87086; 87186

== ENCOUNTER → 2024-04-26 20:05 | Outpatient (ROUT) | payer MEDICARE, OTHER, SELFPAY ==
[2024-04-26 20:20] LABS: Bilirubin Urine UA NEGATIVE (NEGATIVE); Ketones Urine UA NEGATIVE (NEGATIVE); Occult Blood Urine UA NEGATIVE (Negative); Specific Gravity Urine UA 1.015 (1.000-1.035)
[2024-04-26 20:22] LABS: Appearance Urine UA SL CLOUDY; Color Urine UA ORANGE
[2024-04-26 20:29] LABS: RBC Urine None Seen (0-5/HPF); Urine Volume 10mL (spun); WBC Urine 10-30/HPF (0-5/HPF)
[2024-04-26 20:30] LABS: Bacteria Urine Many (>30); Culture Indicated Urine Specimen Cultured; Squamous Epithelial Cell Urine 1-5 /HPF (0-5/HPF)
== END ==
PROVIDERS: Family Provider Family Medicine; PCP Family Medicine; Visit Provider Registered Nurse
DX: R30.1 Vesical tenesmus (principal)
CPT/HCPCS: 81001; 87077; 87086; 87186

== ENCOUNTER → 2024-06-27 13:31 | Outpatient (ROUT) | payer MEDICARE, OTHER, SELFPAY ==
[2024-06-27 13:37] LABS: Appearance Urine UA SL CLOUDY; Bilirubin Urine UA NEGATIVE (NEGATIVE); Color Urine UA YELLOW; Glucose Urine UA NEGATIVE (Negative); Ketones Urine UA NEGATIVE (NEGATIVE); Leukocyte Esterase Urine UA 2+ (NEGATIVE); Nitrite Urine UA POSITIVE (Negative); Occult Blood Urine UA 1+ (Negative); Protein Urine UA 1+ (Negative); Urobilinogen Urine UA 0.2 E.U./dL (0.2); pH Urine UA 6.5 (4.5-8.0)
[2024-06-27 13:38] LABS: RBC Urine 1-5/HPF (0-5/HPF); Urine Volume 10mL (spun)
[2024-06-27 13:39] LABS: Bacteria Urine Many (>30); Culture Indicated Urine Specimen Cultured; Squamous Epithelial Cell Urine None Seen (0-5/HPF); WBC Urine 30-100/HPF (0-5/HPF)
== END ==
PROVIDERS: Family Provider Family Medicine; PCP Family Medicine; Visit Provider Registered Nurse
DX: R30.0 Dysuria (principal); N39.0 Urinary tract infection, site not specified
CPT/HCPCS: 81001; 87077; 87086; 87186